=== PATIENT | male | born 1995 | race Caucasian/White ===

== ENCOUNTER 2023-02-25 21:46 | Inpatient (IN) | payer SELFPAY ==
[2023-02-25] MEDS ORDERED: Ipratropium/Albuterol 3 ML NEB NEB PRN (23:05)
[2023-02-25] MEDS ORDERED: Morphine 2 MG/ML VIAL SLOW IVP PRN (23:05)
[2023-02-25] MEDS ORDERED: Ondansetron PF 4 MG/2 ML Vial IVP PRN (23:05)
[2023-02-25] MEDS ORDERED: Glucagon 1 MG/ML KIT IM PRN (23:05)
[2023-02-25] MEDS ORDERED: Dextrose 50% Abboject 50 ML SYRINGE SLOW IVP PRN (23:05)
[2023-02-25] MEDS ORDERED: Dextrose 5% in Water 1,000 ML IV PRN (23:05)
[2023-02-25] MEDS ORDERED: Lidocaine 1% w/Epinephrine 1:100K 20 ML VIAL ONE (23:06)
[2023-02-25] MEDS ORDERED: Magnesium 2 GM/50 ML BAG (IN WATER) ONE (23:07)
[2023-02-25] MEDS ORDERED: Bacitracin 1 PK ONE (23:07)
[2023-02-25] MEDS ORDERED: Ondansetron PF 4 MG/2 ML Vial ONE (23:07)
[2023-02-25] MEDS ORDERED: Morphine 4 MG/ML VIAL ONE (23:08)
[2023-02-25 23:48] LABS: ALT (SGPT) 75 U/L (8-55); AST (SGOT) 45 U/L (5-34); Albumin 4.1 g/dL (3.5-5.0); Alcohol Less than 10.0 mg/dL (Less than 10); Alkaline Phosphatase 63 U/L (40-110); Anion Gap 14 mmol/L (10-20); BUN (Urea Nitrogen) 11 mg/dL (8.9-20.6); Bilirubin, Total 0.4 mg/dL (0.2-1.2); Calc. Creatinine Clearance 0 mL/min (70-130); Calcium 8.4 mg/dL (7.8-10.44); Carbon Dioxide 21 mmol/L (22-29); Chloride 110 mmol/L (98-107); Estimated GFR 122; Globulin 2.1 g/dL (2.4-3.5); Glucose 131 mg/dL (70-105); Potassium 3.7 mmol/L (3.5-5.1); Protein, Total 6.2 g/dL (6.0-8.3); Sodium 141 mmol/L (136-145)
[2023-02-26] MEDS: Morphine 4 MG/ML VIAL SLOW IVP PRN ×3 (02:49→10:13)
[2023-02-26] MEDS: Sodium Chloride 0.9% 1,000 ML IV SCH ×2 (02:49→10:12)
[2023-02-26 04:50] VITALS: BMI 21.4
[2023-02-26] MEDS: Acetaminophen 500 MG TAB PO SCH ×5 (04:57→23:42)
[2023-02-26 06:17] LABS: #Monocytes 0.6 thou/uL (0.11-0.59); #Neutrophils 6.2 thou/uL (1.40-6.50); %Basophils 0.1 % (0.0-1.0); %Eosinophils 0.1 % (0.0-10.0); %Lymphocytes 11.5 % (21.0-51.0); %Monocytes 7.5 % (0.0-10.0); %Neutrophils 80.4 % (42.0-75.0); Hemoglobin 13.5 g/dL (14.0-18.0); Mean Corpuscular HGB CONC 34.7 g/dL (32.0-36.0); Mean Corpuscular Hemoglobin 30.7 pg (27.0-31.0); Mean Corpuscular Volume 88.4 fl (78.0-98.0); Mean Platelet Volume 10.1 fL (7.4-10.4); Platelet Count 137 10x3/uL (130-400); RBC Distribution Width 11.8 % (11.5-14.5); White Blood Cell (WBC) Count 7.8 10x3/uL (4.8-10.8)
[2023-02-26 06:39] LABS: Anion Gap 14 mmol/L (10-20); BUN (Urea Nitrogen) 8 mg/dL (8.9-20.6); Calc. Creatinine Clearance 145 mL/min (70-130); Calcium 8.1 mg/dL (7.8-10.44); Carbon Dioxide 21 mmol/L (22-29); Chloride 108 mmol/L (98-107); Estimated GFR 125; Glucose 125 mg/dL (70-105); Potassium 3.7 mmol/L (3.5-5.1); Sodium 139 mmol/L (136-145)
[2023-02-26] MEDS: Senokot S 8.6-50 MG TAB PO SCH ×2 (08:36→20:58)
[2023-02-26] MEDS: Chlorhexidine Gluconate 15 ML UDCUP SSP SCH ×3 (08:36→20:59)
[2023-02-26] MEDS: Famotidine/PF 20 mg/2ml Vial SLOW IVP SCH ×2 (08:36→20:59)
[2023-02-26] MEDS: Polyethylene Glycol 3350 17 GM Packet PO SCH (08:36)
[2023-02-26] MEDS ORDERED: traMADol HCl 50 MG TAB PO SCH (12:45)
[2023-02-26] MEDS: traMADol HCl 50 MG TAB PO PRN ×2 (12:55→20:58)
[2023-02-26] MEDS ORDERED: Ondansetron ODT 4 MG TAB PO PRN (14:26)
[2023-02-26] MEDS ORDERED: Scopolamine 1.5 mg/72 hour Patch TD SCH (15:00)
[2023-02-26] MEDS: traMADol HCl 50 MG TAB PO SCH ×2 (17:51→23:42)
[2023-02-26] MEDS: Cyclobenzaprine 10 MG TAB PO PRN (20:59)
[2023-02-27] MEDS: Acetaminophen 500 MG TAB PO SCH ×2 (05:05→11:50)
[2023-02-27] MEDS: traMADol HCl 50 MG TAB PO SCH ×2 (05:06→11:50)
[2023-02-27] MEDS: Famotidine/PF 20 mg/2ml Vial SLOW IVP SCH (08:26)
[2023-02-27] MEDS: Senokot S 8.6-50 MG TAB PO SCH (10:40)
[2023-02-27] MEDS: Polyethylene Glycol 3350 17 GM Packet PO SCH (10:40)
[2023-02-27] MEDS: Cyclobenzaprine 10 MG TAB PO PRN (11:52)
[2023-02-27 12:46] VITALS: BP 125/81; TEMP 97.7
== END 2023-02-27 14:45 | disposition home or self-care (01) | DRG 83 ==
LOC: ERS 21:46 → SURG B 23:09
PROVIDERS: ADMIT Surgery; ATTEND Surgery
DX: S06.6X9A Traumatic subarachnoid hemorrhage with loss of consciousness of unspecified duration, initial encounter (principal); S52.571A Other intraarticular fracture of lower end of right radius, initial encounter for closed fracture; S02.121A Fracture of orbital roof, right side, initial encounter for closed fracture; F17.210 Nicotine dependence, cigarettes, uncomplicated; R40.2412 Glasgow coma scale score 13-15, at arrival to emergency department; S02.2XXA Fracture of nasal bones, initial encounter for closed fracture; S01.01XA Laceration without foreign body of scalp, initial encounter; V29.39XA Other motorcycle (driver) (passenger) injured in unspecified nontraffic accident, initial encounter
CPT/HCPCS: 12013; 29125; 36415; 70450; 80048; 80307; 85025; 96365; 96375; G0390; J2270; J2405; J3475; J7050; S0028

== ENCOUNTER 2023-03-25 15:48 | Outpatient (CLI) | payer OTHER | END 2023-03-25 15:49 | disposition home or self-care (01) | LOC: BICCT 15:48 | PROVIDERS: ATTEND Surgery | DX: S06.6X9A Traumatic subarachnoid hemorrhage with loss of consciousness of unspecified duration, initial encounter (principal) | CPT/HCPCS: 70450 ==